=== PATIENT | male | born 1970 | race Caucasian/White ===

== ENCOUNTER 2025-04-08 13:57 | Emergency (ER) | payer MEDICAID, OTHER ==
[~2025-04-08] VITALS: Ht 188 cm; Wt 86.0 kg
--- NOTE | 2025-04-08 15:22 | ED.PDOC ---
History of Present Illness HPI Comments This is a 54 year old male presenting to the ED with chief complaint of medication refill. Patient reports that he has run out of Keppra, Folic Acid, and Vitamin D3, needing refills for all three. Patient denies any further symptoms at this time. Patient states he recently traveled in the area and does not currently have a primary care provider. Chief Complaint: Medical Clearance Time Seen by MD: 15:21 Primary Care Provider: unknown Reviewed Notes: Nurses Notes, Medications, Allergies Allergies: Coded Allergies: Methylphenidate (Verified Allergy, Mild, 04/08/25) Information Source: Patient Mode of Arrival: Ambulatory Severity: None Timing: Days Duration: Since onset Prehospital treatment: None Medication Refill: Ran out of Medication Past Medical History PAST MEDICAL HISTORY: CVA, Seizures Surgical History: Denies all surgeries Family History Family History: Reviewed,noncontributory to illness Social History Smoker: Non-Smoker Alcohol: Denies ETOH Use Drugs: Denies Drug Use Lives In: Home Constitutional: denies: chills, diaphoresis, fatigue, fever, malaise, sweats, weakness, others EENTM: denies: blurred vision, double vision, ear bleeding, ear discharge, ear drainage, ear pain, ear ringing, eye pain, eye redness, hearing loss, mouth pain, mouth swelling, nasal discharge, nose bleeding, nose congestion, nose pain, photophobia, tearing, throat pain, throat swelling, voice changes, others Respiratory: denies: cough, hemoptysis, orthopnea, SOB at rest, shortness of breath, SOB with excertion, stridor, wheezing, others Cardiovascular: denies: chest pain, dizzy spells, diaphoresis, Dyspnea on exertion, edema, irregular heart beat, left arm pain, lightheadedness, palpitations, PND, syncope, others Gastrointestinal: denies: abdomen distended, abdominal pain, blood streaked bowels, constipated, diarrhea, dysphagia, difficulty swallowing, hematemesis, melena, nausea, poor appetite, poor fluid intake, rectal bleeding, rectal pain, vomiting, others Genitourinary: denies: burning, dysuria, flank pain, frequency, hematuria, incontinence, penile discharge, penile sore, pain, testicle pain, testicle swelling, urgency, others Neurological: denies: dizziness, fainting, headache, left sided numbness, left sided weakness, numbness, paresthesia, pre-existing deficit, right sided numbness, right sided weakness, seizure, speech problems, tingling, tremors, we akness, others Musculoskeletal: denies: back pain, gout, joint pain, joint swelling, muscle pain, muscle stiffness, neck pain, others Integumetry: denies: bruises, change in color, change in hair/nails, dryness, laceration, lesions, lumps, rash, wounds, others Allergic/Immunocompromised: denies: Difficulty Healing, Frequent Infections, Hives, Itching, others Hematologic/Lymphatic: denies: anemia, blood clots, easy bleeding, easy bruising, swollen glands, others Endocrine: denies: excessive hunger, excessive sweating, excessive thirst, excessive urination, flushing, intolerance to cold, intolerance to heat, unexplained weight gain, unexplained weight loss, others Psychiatric: denies: anxiety, bipolar disorder, depression, hopeless, panic disorder, schizophrenia, sleepless, suicidal, others All Other Systems: Reviewed and Negative Physical Exam General Appearance: No Apparent Distress (Patient was in no apparent distress at time of evaluation.), Normal HEENT: Normal ENT Inspection, Pharynx Normal, TMs Normal Neck: Full Range of Motion, Non-Tender, Normal, Normal Inspection Respiratory: Chest Non-Tender, Lungs Clear, No Accessory Muscle Use, No Respiratory Distress, Normal Breath Sounds Cardiovascular: No Edema, No JVD, No Murmur, No Gallop, Normal Peripheral Pulses, Regular Rate/Rhythm Breast Exam: Deferred Gastrointestinal: No Organomegaly, Non Tender, No Pulsatile Mass, Normal Bowel Sounds, Soft Genitalia: Deferred Pelvic: Deferred Rectal: Deferred Extremities: Normal capillary refill, Normal inspection, No pedal edema Neurologic: Alert, Normal Affect, Normal Mood Cerebellar Function: NOT DONE Reflexes: NOT DONE Skin: Dry, Normal Color, Warm Lymphatic: No Adenopathy Was a procedure done? Was a procedure done?: No Differential Dx Considerations may include: Encounter for medication refill X-Ray, Labs, Meds, VS Vital Signs Date Time Temp Pulse Resp B/P (MAP) Pulse Ox O2 Delivery O2 Flow Rate FiO2 04/08/25 14:20 99.2 86 16 125/82 (96) 94 99.2 X-Ray, Labs, Meds, VS Comment Advised patient that I will give him a one month supply of his requested medications. Advised the patient that he needs to establish a primary care provider for management of his long-term conditions. Time of 1ST Reevaluation: 15:47 Reevaluation 1ST: Unchanged Consultation: PCP Patient Education/Counseling: Diagnosis, Treatment Family Education/Counseling: Diagnosis, Treatment, No Family Present SEPSIS Sepsis Screen Date sepsis recognized/suspect: Apr 08, 2025 Time Sepsis recognized/suspect: 1405 Recent Procedure: No On Antibiotic Therapy: No Respiratory Rate >20: No Heart Rate >90: No Temp<36 C (96.8 F) or >38.3 C: No SBP <90 or MAP <65 mmHG: No New Acute Mental Status Change: No Is the patient on CPAP, BIPAP,: No Vital Signs Date Time Temp Pulse Resp B/P (MAP) Pulse Ox O2 Delivery O2 Flow Rate FiO2 04/08/25 14:20 99.2 86 16 125/82 (96) 94 99.2 Departure 1 Departure Time of Disposition: 15:47 Impression: Primary Impression: Encounter for medication refill Disposition: HOME / SELF CARE / HOMELESS Condition: Stable Additional Instructions: Advised patient utilize medication as directed. Patient needs to establish a primary care provider for joint terminal attack controller management of his multiple comorbidities. e-Prescriptions Cholecalciferol (D3) 2,000 Unit Cap 2000 UNIT PO DAILY, #30 CAP Prov: MAITE BECK 04/08/25 Levetiracetam (Keppra) 1,000 Mg Tab 1 TAB PO BID, #60 TAB 0 Refills Prov: MAITE BECK 04/08/25 Folic Acid (Folic Acid) 1 Mg Tab 1 MG PO DAILY, #30 TAB Prov: MAITE BECK 04/08/25 Discharged With: Self Critical Care Note Critical Care Time?: No Stability Stability form required: No Heart Score Heart Score: Heart Score Response (Comments) Value History N/A 0 EKG N/A 0 Age N/A 0 Risk Factors N/A 0 Troponin N/A 0 Total 0 I personally scribed for MAITE BECK ([email or web address]) on 04/08/25 at 15:22. Electronically submitted by Flako Mobley ([email or web address]). MAITE BECK PAC Apr 08, 2025 15:22
[2025-04-08] MEDS ORDERED: CHOL200031 PO (15:50)
[2025-04-08] MEDS ORDERED: FOLI-119 PO (15:50)
[2025-04-08] MEDS ORDERED: LEVE100012 PO (15:50)
[2025-04-08 16:11] VITALS: BP 132/78; PULSE 76; RESP 18; TEMP 98.3; O2SAT 96
== END 2025-04-08 16:37 | disposition home or self-care (01) ==
LOC: ER 13:57
DX: Z76.0 Encounter for issue of repeat prescription (principal); Z86.73 Personal history of transient ischemic attack (TIA), and cerebral infarction without residual deficits